=== PATIENT | female | born 1960 | race Caucasian/White ===

== ENCOUNTER 2017-01-18 07:30 | Day surgery (SDC) | payer OTHER ==
--- NOTE | ~2017-01-18 | EGD ---
EGD REPORT [facility] [address] [address] NAME: MERYL MCKEON : [birth year] STATUS : [facility] UNIT#: [id number] AGE: 56 ADM/REG DATE : 01/18/17 MR#: [id number] REPORT SERV DATE: 01/25/17 DICTATED BY: KWAME JACOBSON DATE: 01/25/17 REPORT STATUS : Draft [facility]ANSCR[facility]: [facility] DATE: 01/25/17 Endoscopy Center Patient Name: Meryl Mckeon Date of : 1960 Attending MD: KWAME JACOBSON, Procedure Date No Time: 01/18/2017 Procedure: Colonoscopy Indications: Abdominal pain, Chronic diarrhea Referring MD: JUNE DOTSON Medicines: Propofol per Anesthesia Complications: No immediate complications. Estimated blood loss: None. Procedure: Pre-Anesthesia Assessment: - ASA Grade Assessment: III - A patient with severe systemic disease. After I obtained informed consent, the scope was passed under direct vision. Throughout the procedure, the patient's blood pressure, pulse, and oxygen saturations were monitored continuously. The [id number] was introduced through the anus and advanced to the cecum, identified by appendiceal orifice and ileocecal valve. The colonoscopy was somewhat difficult due to significant looping. Successful completion of the procedure was aided by applying abdominal pressure. The patient tolerated the procedure well. The quality of the bowel preparation was good. Findings: The perianal exam was abnormal. Findings include skin tags. Multiple small-mouthed diverticula were found in the sigmoid colon. Internal hemorrhoids were found during retroflexion and were Grade I (internal hemorrhoids that do not prolapse). Biopsies were taken with a cold forceps from the entire colon for evaluation of microscopic colitis. Estimated blood loss: none. Impression: - Perianal skin tags found on perianal exam. - Diverticulosis in the sigmoid colon. - Internal hemorrhoids. Recommendation: - Patient has a contact number available for emergencies. The signs and symptoms of potential delayed complications were discussed with the patient. Return to normal activities tomorrow. Written discharge instructions were provided to the patient. - Follow a low FODMAP diet. - Discharge patient to home (with escort). EGD REPORT [address] [place]. [address] NAME: MERYL MCKENO : 60 STATUS : [facility] PAT#: [id number] AGE: 56 ADM/REG DATE : 01/18/17 MR#: [id number] REPORT SERV DATE: 01/25/17 DICTATED BY: KWAME JACOBSON DATE: 01/25/17 REPORT STATUS : Draft TRANSCRIBED BY: [employer] DATE: 01/25/17 - Continue present medications. - Await pathology results. - Repeat colonoscopy in 5 years for surveillance. - Return to GI clinic in 4 weeks. Procedure Code(s): --- Professional --- 01168, Colonoscopy, flexible, proximal to splenic flexure; with biopsy, single or multiple Diagnosis Code(s): --- Professional --- K64.4, Residual hemorrhoidal skin tags K64.0, First degree hemorrhoids K57.30, Diverticulosis of large intestine without perforation or abscess without bleeding R10.9, Unspecified abdominal pain K52.9, Noninfective gastroenteritis and colitis, unspecified CPT copyright 2013 [employer]. All rights reserved. The codes documented in this report are preliminary and upon check viewer review may be revised to meet current compliance requirements. KWAME JACOBSON, 01/18/2017 10:17 AM This report has been signed electronically. Number of Addenda: 0 Note Initiated On: 01/18/2017 9:09 AM Scope Withdrawal Time 0 hours 6 minutes 27 seconds [id number] [place] [id number]
--- NOTE | ~2017-01-18 | EGD ---
EGD REPORT [facility] [address] [address] NAME: MERYL MCKEON : [birth year] STATUS : [facility]#: [id number] AGE: 56 ADM/REG DATE : 01/18/17 MR#: [id number] REPORT SERV DATE: 01/25/17 DICTATED BY: KWAME JACOBSON DATE: 01/25/17 REPORT STATUS : Draft [facility]IBED [facility]: [facility] DATE: 01/25/17 Endoscopy Center Patient Name: Meryl Mckeon Date of : 1960 Attending MD: KWAME JACOBSON, Procedure Date No Time: 01/18/2017 Procedure: Upper GI endoscopy Indications: Abdominal pain, Diarrhea Referring MD: JUNE DOTSON Medicines: Propofol per Anesthesia Complications: No immediate complications. Estimated blood loss: None. Procedure: Pre-Anesthesia Assessment: - ASA Grade Assessment: III - A patient with severe systemic disease. After obtaining informed consent, the endoscope was passed under direct vision. Throughout the procedure, the patient's blood pressure, pulse, and oxygen saturations were monitored continuously. The [facility] H190 [id number] was introduced through the mouth, and advanced to the second part of duodenum. The upper GI endoscopy was accomplished with ease. The patient tolerated the procedure well. Findings: The examined esophagus was normal. The Z-line was found 41 cm from the incisors. Moderate inflammation characterized by congestion (edema), erosions and erythema was found in the gastric body and in the gastric antrum. Biopsies were taken with a cold forceps for Helicobacter pylori testing. Estimated blood loss: none. submucosal, pillowy lipoma The duodenal bulb and 2nd part of the duodenum were normal. Biopsies were taken with a cold forceps for evaluation of celiac disease. Estimated blood loss: none. Impression: - Normal esophagus. - Z-line 41 cm from the incisors. - Gastritis. Biopsied. - Normal duodenal bulb and 2nd part of the duodenum. Biopsied. Recommendation: - Patient has a contact number available for emergencies. The signs and symptoms of potential delayed complications were discussed with the patient. Return to normal activities tomorrow. Written discharge EGD REPORT [address] [address] NAME: MERYL MCKEON : [birth year] STATUS : [facility] PAT#: [id number] AGE: 56 ADM/REG DATE : 01/18/17 MR#: [id number] REPORT SERV DATE: 01/25/17 DICTATED BY: KWAME JACOBSON DATE: 01/25/17 REPORT STATUS : Draft TRANSCRIBED BY: [employer] DATE: 01/25/17 instructions were provided to the patient. - Follow a low FODMAP diet. - Discharge patient to home (with escort). - Continue present medications. - No aspirin, ibuprofen, naproxen, or other non-steroidal anti-inflammatory drugs. - Follow an antireflux regimen. - Await pathology results. - Return to GI clinic in 4 weeks. Procedure Code(s): --- Professional --- 27474, Esophagogastroduodenoscopy, flexible, transoral; with biopsy, single or multiple Diagnosis Code(s): --- Professional --- K29.70, Gastritis, unspecified, without bleeding R10.9, Unspecified abdominal pain R19.7, Diarrhea, unspecified CPT copyright 2013 [employer]. All rights reserved. The codes documented in this report are preliminary and upon automobile mechanic assistant review may be revised to meet current compliance requirements. KWAME JACOBSON, 01/18/2017 9:50 AM This report has been signed electronically. Number of Addenda: 0 Note Initiated On: 01/18/2017 9:12 AM Scope Withdrawal Time 0 hours 0 minutes 0 seconds [id number] [place] [id number]
--- NOTE | ~2017-01-18 | EGD ---
EGD REPORT [facility] [address] [address] NAME: PAULA MCKEON : 60 STATUS : [facility]#: [id number] AGE: 56 ADM/REG DATE : 01/18/17 MR#: [id number] REPORT SERV DATE: 01/25/17 DICTATED BY: KWAME JACOBSON DATE: 01/25/17 REPORT STATUS : Draft [facility]ANSCRIBED BY: [facility] DATE: 01/25/17 THIS EXAM WAS SENT IN ERROR
--- NOTE | ~2017-01-18 | EGD ---
EGD REPORT [facility] [address] [address] NAME: MERYL MCKEON : 60 STATUS : [facility]#: [id number] AGE: 56 ADM/REG DATE : 01/18/17 MR#: [id number] REPORT SERV DATE: 01/25/17 DICTATED BY: KWAME JACOBSON DATE: 01/25/17 REPORT STATUS : Draft [facility]CRIBED [facility]: [facility] DATE: 01/25/17 Endoscopy Center Patient Name: Meryl Mckeon Date of : 1960 Attending MD: KWAME JACOBSON, Procedure Date No Time: 01/18/2017 Procedure: Upper GI endoscopy Indications: Abdominal pain, Diarrhea Referring MD: JUNE DOTSON Medicines: Propofol per Anesthesia Complications: No immediate complications. Estimated blood loss: None. Procedure: Pre-Anesthesia Assessment: - ASA Grade Assessment: III - A patient with severe systemic disease. After obtaining informed consent, the endoscope was passed under direct vision. Throughout the procedure, the patient's blood pressure, pulse, and oxygen saturations were monitored continuously. The [facility] H190 [id number] was introduced through the mouth, and advanced to the second part of duodenum. The upper GI endoscopy was accomplished with ease. The patient tolerated the procedure well. Findings: The examined esophagus was normal. The Z-line was found 41 cm from the incisors. Moderate inflammation characterized by congestion (edema), erosions and erythema was found in the gastric body and in the gastric antrum. Biopsies were taken with a cold forceps for Helicobacter pylori testing. Estimated blood loss: none. submucosal, pillowy lipoma The duodenal bulb and 2nd part of the duodenum were normal. Biopsies were taken with a cold forceps for evaluation of celiac disease. Estimated blood loss: none. Impression: - Normal esophagus. - Z-line 41 cm from the incisors. - Gastritis. Biopsied. - Normal duodenal bulb and 2nd part of the duodenum. Biopsied. Recommendation: - Patient has a contact number available for emergencies. The signs and symptoms of potential delayed complications were discussed with the patient. Return to normal activities tomorrow. Written discharge EGD REPORT [address] [address] NAME: MERYL MCKEON : 60 STATUS : [facility] PAT#: [id number] AGE: 56 ADM/REG DATE : 01/18/17 MR#: [id number] REPORT SERV DATE: 01/25/17 DICTATED BY: KWAME JACOBSON DATE: 01/25/17 REPORT STATUS : Draft TRANSCRIBED BY: [employer] DATE: 01/25/17 instructions were provided to the patient. - Follow a low FODMAP diet. - Discharge patient to home (with escort). - Continue present medications. - No aspirin, ibuprofen, naproxen, or other non-steroidal anti-inflammatory drugs. - Follow an antireflux regimen. - Await pathology results. - Return to GI clinic in 4 weeks. Procedure Code(s): --- Professional --- 52413, Esophagogastroduodenoscopy, flexible, transoral; with biopsy, single or multiple Diagnosis Code(s): --- Professional --- K29.70, Gastritis, unspecified, without bleeding R10.9, Unspecified abdominal pain R19.7, Diarrhea, unspecified CPT copyright 2013 [employer]. All rights reserved. The codes documented in this report are preliminary and upon media manager review may be revised to meet current compliance requirements. KWAME JACOBSON, 01/18/2017 9:50 AM This report has been signed electronically. Number of Addenda: 0 Note Initiated On: 01/18/2017 9:12 AM Scope Withdrawal Time 0 hours 0 minutes 0 seconds [id number] [place] [id number]
--- NOTE | ~2017-01-18 | EGD ---
EGD REPORT [facility] [address] [address] NAME: MERYL MCKEON : 60 STATUS : [facility]#: [id number] AGE: 56 ADM/REG DATE : 01/18/17 MR#: [id number] REPORT SERV DATE: 01/25/17 DICTATED BY: KWAME JACOBSON DATE: 01/25/17 REPORT STATUS : Draft [facility]IBED [facility]: [facility] DATE: 01/25/17 Endoscopy Center Patient Name: Meryl Mckeon Date of : 1960 Attending MD: KWAME JACOBSON, Procedure Date No Time: 01/18/2017 Procedure: Colonoscopy Indications: Abdominal pain, Chronic diarrhea Referring MD: JUNE DOTSON Medicines: Propofol per Anesthesia Complications: No immediate complications. Estimated blood loss: None. Procedure: Pre-Anesthesia Assessment: - ASA Grade Assessment: III - A patient with severe systemic disease. After I obtained informed consent, the scope was passed under direct vision. Throughout the procedure, the patient's blood pressure, pulse, and oxygen saturations were monitored continuously. The [id number] was introduced through the anus and advanced to the cecum, identified by appendiceal orifice and ileocecal valve. The colonoscopy was somewhat difficult due to significant looping. Successful completion of the procedure was aided by applying abdominal pressure. The patient tolerated the procedure well. The quality of the bowel preparation was good. Findings: The perianal exam was abnormal. Findings include skin tags. Multiple small-mouthed diverticula were found in the sigmoid colon. Internal hemorrhoids were found during retroflexion and were Grade I (internal hemorrhoids that do not prolapse). Biopsies were taken with a cold forceps from the entire colon for evaluation of microscopic colitis. Estimated blood loss: none. Impression: - Perianal skin tags found on perianal exam. - Diverticulosis in the sigmoid colon. - Internal hemorrhoids. Recommendation: - Patient has a contact number available for emergencies. The signs and symptoms of potential delayed complications were discussed with the patient. Return to normal activities tomorrow. Written discharge instructions were provided to the patient. - Follow a low FODMAP diet. - Discharge patient to home (with escort). EGD REPORT [address] [place]. [address] NAME: MERYL MCKEON : 60 STATUS : [facility] PAT#: [id number] AGE: 56 ADM/REG DATE : 01/18/17 MR#: [id number] REPORT SERV DATE: 01/25/17 DICTATED BY: KWAME JACOBSON DATE: 01/25/17 REPORT STATUS : Draft TRANSCRIBED BY: [email or web address] DATE: 01/25/17 - Continue present medications. - Await pathology results. - Repeat colonoscopy in 5 years for surveillance. - Return to GI clinic in 4 weeks. Procedure Code(s): --- Professional --- 90612, Colonoscopy, flexible, proximal to splenic flexure; with biopsy, single or multiple Diagnosis Code(s): --- Professional --- K64.4, Residual hemorrhoidal skin tags K64.0, First degree hemorrhoids K57.30, Diverticulosis of large intestine without perforation or abscess without bleeding R10.9, Unspecified abdominal pain K52.9, Noninfective gastroenteritis and colitis, unspecified CPT copyright 2013 [employer]. All rights reserved. The codes documented in this report are preliminary and upon lean process deployment consultant review may be revised to meet current compliance requirements. KWAME JACOBSON, 01/18/2017 10:17 AM This report has been signed electronically. Number of Addenda: 0 Note Initiated On: 01/18/2017 9:09 AM Scope Withdrawal Time 0 hours 6 minutes 27 seconds [id number] [place] [id number]
[~2017-01-18 07:30] MED LIST: ADVAIR100 INH; ADVAIR115P INH; ALLEGRA180 PO; ASAB PO; BENTYL10 PO; BIAXIN500 MG OR; COCONUT OIL PO; COVARYX HS PO; DUONEB INH; ESTRATESHS PO; FISH-EPA1000 MG PO; FLONASE NAS; GLUCPH PO; L10 PO; LEVOTHROID50 MCG PO; LEVOTHYROXIN50 MCG PO; LORTAB 5 PO; LORTAB10 PO; METHOC750B PO; PR25 PO; PRILO PO; PROBIOTIC; PROTONIX PO; RESTASIS OPH; SINGULAIR1 PO; TEARS NATURA OPH; THERA TEARS OR; THERA TEARS PO; VENTOLIN HFA INH; VOLT75 PO; XANAX1 MG PO; XANAX2 MG PO; ZYRTEC ALLGY10 MG PO; [UNRECOGNIZED DRUG - CODE] PO
== END 2017-01-18 23:59 | disposition home health service (06) ==
LOC: DMU 07:30
PROVIDERS: Internal Medicine Gastroenterology
PROC: 0DBE8ZX Excision of Large Intestine, Via Natural or Artificial Opening Endoscopic, Diagnostic (ICD-10-PCS; 2017-01-18)
PROC: 0DB68ZX Excision of Stomach, Via Natural or Artificial Opening Endoscopic, Diagnostic (ICD-10-PCS; principal; 2017-01-18 09:00)
PROC: 0DB98ZX Excision of Duodenum, Via Natural or Artificial Opening Endoscopic, Diagnostic (ICD-10-PCS; 2017-01-18 09:00)
DX: K64.0 First degree hemorrhoids (principal); K57.30 Diverticulosis of large intestine without perforation or abscess without bleeding; K64.4 Residual hemorrhoidal skin tags; K52.9 Noninfective gastroenteritis and colitis, unspecified; E66.9 Obesity, unspecified; E11.9 Type 2 diabetes mellitus without complications; F17.200 Nicotine dependence, unspecified, uncomplicated
CPT/HCPCS: 82962; 88305; 88313